=== PATIENT | female | born 1970 | race Caucasian/White ===

== ENCOUNTER → 2021-01-12 | Outpatient (CLI) | payer OTHER ==
[2021-01-13 07:13] LABS: RHEUMATOID ARTHRITIS FACTOR <10.0 IU/mL (0.0-13.9)
== END ==
LOC: LAB 12:22
PROVIDERS: Nurse Practitioner Family
DX: M25.50 Pain in unspecified joint (principal); M79.10 Myalgia, unspecified site; M79.643 Pain in unspecified hand; M79.673 Pain in unspecified foot; M19.042 Primary osteoarthritis, left hand; M19.041 Primary osteoarthritis, right hand
CPT/HCPCS: 36415; 73130; 73630; 82550; 82728; 83520; 85652; 86140; 86200; 86431

== ENCOUNTER → 2021-01-25 | Outpatient (CLI) | payer OTHER | LOC: EMI 15:55 | DX: M87.00 Idiopathic aseptic necrosis of unspecified bone (principal); M19.032 Primary osteoarthritis, left wrist; M85.642 Other cyst of bone, left hand | CPT/HCPCS: 73221 ==